=== PATIENT | female | born 1995 | race Caucasian/White ===

== ENCOUNTER 2018-03-13 11:30 | Emergency (ER) | payer OTHER, MEDICAID ==
[2018-03-13 12:37] LABS: URINE BLOOD (Dip) POC Trace-lysed (NEGATIVE); URINE GLUCOSE (Dip) POC Negative (NEGATIVE); URINE KETONES (Dip) POC Trace (NEGATIVE); URINE LEUKOCYTE EST (Dip) POC 3+ (NEGATIVE); URINE NITRITE (Dip) POC Negative (NEGATIVE); URINE TOTAL PROTEIN POC 1+ (NEGATIVE)
[2018-03-13] MEDS: ACETAMINOPHEN 325 MG TAB PO (14:01)
== END 2018-03-13 14:17 | disposition home or self-care (01) ==
LOC: FTE 11:30
DX: N39.0 Urinary tract infection, site not specified (principal)
CPT/HCPCS: 76830; 76856; 81003; 81025; 99284-25